=== PATIENT | female | born 1985 | race Caucasian/White ===

== ENCOUNTER 2018-07-01 18:21 | Emergency (ER) | payer MEDICAID ==
[~2018-07-01] VITALS: Ht 165.1 cm; Wt 98.1 kg
[~2018-07-01 18:21] MED LIST: CEPH500C16 PO; IBUP-974 PO; PREN-132 PO
[2018-07-01 18:24] VITALS: BP 122/77
--- NOTE | 2018-07-01 18:31 | NUR ---
PT AMBULATED TO LOBBY AT THIS TIME WITH VSS.
--- NOTE | 2018-07-01 18:31 | NUR ---
BIB . AAO X4 C/O LT SIDED FACIAL PAIN X2 WEEKS. PT REPORTS INTERMITENT SHARP/STINGING PAIN THAT RADIATES DOWN LT SIDE OF FACE AT 6/10 AND NUMBNESS ACROSS THE BACK OF HER HEAD. PT REPORTS WAKING UP FROM FACIAL PAIN. FACIAL SYMMETRY INTACT, SPEECH CLEAR, AAOX4, PERRLA BRISK 3 MM. HAND [employer] EQUAL/STRONG, GAIT STEADY. PT WENT TO PCP YESTERDAY AND RECIEVED GABAPENTIN AND IBUPROFEN, AND RECOMENDED CT SCAN. HOB UP. BED SIDE RAILS UP X1. ON LOW BED POSITION, LOCKED. ER MADE AWARE OF PT STATUS.
--- NOTE | 2018-07-01 19:08 | NUR ---
Pt report given to SHANNON Vines. Transfer of care at this time.
--- NOTE | 2018-07-01 19:10 | NUR ---
RECEIVED REPORT FROM AM NURSE. AT BEDSIDE. PT LAYING IN BED, RR EVEN AND UNLABORED. ALL NEEDS MET AT THIS TIME.
[2018-07-01] MEDS ORDERED: AMOXIL/CLAVULANATE 875/125 MG 1 TAB PO ONE (19:55)
[2018-07-01] MEDS ORDERED: AMOXIL/CLAVULANATE 875/125 MG 1 TAB ONE (20:35)
[2018-07-01 20:58] VITALS: BP 119/61
--- NOTE | 2018-07-01 20:58 | NUR ---
Patient discharged with v/s stable. Written and verbal after care instructions given and explained. Patient alert, oriented and verbalized understanding of instructions. Ambulatory with steady gait. All questions addressed prior to discharge. ID band removed. Patient advised to follow up with PMD. Rx of FLONASE SPRAY, AUGMENTIN given. Patient educated on indication of medication including possible reaction and side effects. Opportunity to ask questions provided and answered.
== END 2018-07-01 20:58 | disposition home or self-care (01) ==
LOC: MED 18:21
DX: J32.0 Chronic maxillary sinusitis (principal); J32.1 Chronic frontal sinusitis; Z79.899 Other long term (current) drug therapy
CPT/HCPCS: 81025; 99283